=== PATIENT | female | born 1970 | race Caucasian/White ===

== ENCOUNTER → 2017-07-02 | Outpatient (CLI) | payer OTHER ==
--- NOTE | 2017-07-02 12:52 | US ---
EXAMINATION TYPE: US pelvis complete transvag DATE OF EXAM: 07/02/2017 COMPARISON: 11/13/2014 CLINICAL HISTORY: 38-year-old female assess R93.8 ENDOMETRIAL STRIPE. Patient states thickened endome trium on previous ultrasound performed at a different facility. Pelvic pain TECHNIQUE: Transvaginal (TV) and Transabdominal (TA) Date of LMP: Last normal LMP was in March, spotting last week FINDINGS: Uterus: Anteverted measuring 10.5 x 5.2 x 5.9 cm there are cervical nabothian cysts measuring up to 9 mm. Uterus appears enlarged with diffusely heterogeneous myometrium and suggestion of some myometr ial cysts. Endometrial Stripe: 1.8 cm, thickened. The borders of the endometrium are not well delineated. Right Ovary: 2.1 x 1.4 x 1.5 cm. Left Ovary: 4.2 x 2.2 x 3.1 cm only seen transabdominally with a 1.8 cm hypoechoic lesion that could represent a hemorrhagic follicle or corpus luteum. No evident adnexal abnormality or cul-de-sac free fluid. IMPRESSION: 1. Somewhat large, heterogeneous uterus with scattered myometrial cysts. Correlate for possible adeno myosis. Female pelvic MRI could better define the junctional anatomy. 2. Thickened (1.8 cm) and somewhat ill-defined endometrial stripe. Again, MRI could further evaluate.
== END | disposition home or self-care (01) ==
LOC: RADUSWWP 09:51
PROVIDERS: ATTEND Obstetrics & Gynecology
DX: R93.8 Abnormal findings on diagnostic imaging of other specified body structures (principal)
CPT/HCPCS: 76830; 76856

== ENCOUNTER 2017-07-03 07:03 | Day surgery (SDC) | payer OTHER ==
[2017-07-01 08:35] VITALS: BMI 32.7
[~2017-07-03 07:03] MED LIST: LIDOCAINE 1% 20 ML VIAL (10MG/ML) FOR IV START INTRADERMA PRN
[2017-07-03 07:14] VITALS: RESP 16; TEMP 96.9
[2017-07-03] MEDS: LACTATED RINGERS 1,000 ML IV SCH ×2 (07:25→07:33)
[2017-07-03] MEDS ORDERED: LIDOCAINE 1% INJ 10MG/ML (20 ML MDV) ONE (07:35)
[2017-07-03] MEDS ORDERED: PROPOFOL 10 MG/ML 20 ML VIAL IV ONE (07:35)
--- NOTE | 2017-07-03 07:59 | P.OP ---
Date of Procedure: 07/03/17 Preoperative Diagnosis: Screening. Personal history of colon polyps. Family history of colon cancer in her mother. Postoperative Diagnosis: Moderate diverticulosis. Mild internal hemorrhoids. Procedure(s) Performed: Colonoscopy. Anesthesia: MAC Surgeon: Hao Mcknight Estimated Blood Loss (ml): 0 Pathology: none sent Condition: stable Disposition: same day Indications for Procedure: Screening. Operative Findings: Moderate diverticulosis. Mild internal hemorrhoids. Description of Procedure: With the patient in the left lateral position rectal digital exam was normal there were no palpable masses. The video colonoscope was inserted transanally and advanced all the way to the cecum which was entered without visualized colon was somewhat tortuous. The mucosa were thoroughly examined. Findings moderate diverticulosis uncomplicated. Mild the internal hemorrhoids the which may explain the occasional streak of blood in the stool. Polyps neoplasms or any other mucosal abnormalities were found. The patient tolerated the procedure well without any evident complications. Recommendation. High-fiber diet the. May benefit from a fiber supplement daily. Conservative treatment for the hemorrhoids unless she gets more symptomatic. Advised to chew her food well. Recommend a follow-up colonoscopy in about the 5 years in view of family history and personal history of polyps.
[2017-07-03 08:19] VITALS: BP 138/86; PULSE 64
== END 2017-07-03 08:38 | disposition home or self-care (01) ==
LOC: ORWHC2ENDO 07:03
PROVIDERS: ATTEND Surgery
DX: K57.30 Diverticulosis of large intestine without perforation or abscess without bleeding (principal); K64.8 Other hemorrhoids; Z86.010 Personal history of colon polyps; Z80.0 Family history of malignant neoplasm of digestive organs; E03.9 Hypothyroidism, unspecified; E78.5 Hyperlipidemia, unspecified; K92.1 Melena; Z95.1 Presence of aortocoronary bypass graft; Z79.82 Long term (current) use of aspirin; Z79.899 Other long term (current) drug therapy
CPT/HCPCS: 45378; 81025

== ENCOUNTER 2018-04-17 06:57 | Emergency (ER) | payer OTHER ==
--- NOTE | 2018-04-17 08:00 | ED ---
General Adult HPI - General Chief complaint: Chest Pain Stated complaint: Lump on breast Time Seen by Provider: 04/17/18 07:40 Source: patient, RN notes reviewed Mode of arrival: ambulatory Limitations: no limitations - History of Present Illness Initial comments: Patient is a pleasant 47-year-old female presenting to the emergency department with concerns for lump on her right breast. Patient notices this morning however states there may have been some mild irritation there yesterday. Patient states it is more irritated or itching however when she pushes deep there is some discomfort. No redness. No fevers. No history of similar symptoms sleep. Patient has not noticed any swelling or mass previously. - Related Data Home Medications Medication Instructions Recorded Confirmed Aspirin 81 mg PO DAILY 11/13/14 07/01/17 Levothyroxine Sodium [Synthroid] 100 mcg PO DAILY 11/13/14 07/01/17 Albuterol Inhaler [Ventolin Hfa 1 - 2 puff INHALATION Q6HR PRN 07/01/17 07/01/17 Inhaler] L.acidoph,Paracasei, B.lactis 1 each PO DAILY 07/01/17 07/01/17 [Probiotic] [place]-3 Acid Ethyl Esters [Lovaza] 4 gm PO DAILY 07/01/17 07/01/17 Calcium Polycarbophil [Fibercon] 625 mg PO DAILY 04/17/18 04/17/18 Previous Rx's Medication Instructions Recorded Amoxicillin 500 mg PO Q8H #30 capsule 04/17/18 Allergies Allergy/AdvReac Type Severity Reaction Status Date / Time No Known Allergies Allergy Verified 04/17/18 07:05 Review of Systems ROS Statement: Those systems with pertinent positive or pertinent negative responses have been documented in the HPI. ROS Other: All systems not noted in ROS Statement are negative. Constitutional: Denies: fever Eyes: Denies: eye pain ENT: Denies: ear pain Respiratory: Denies: cough Cardiovascular: Denies: palpitations Endocrine: Denies: fatigue Gastrointestinal: Denies: abdominal pain Genitourinary: Denies: dysuria Musculoskeletal: Denies: back pain Skin: Denies: rash Neurological: Denies: weakness Past Medical History Past Medical History: Thyroid Disorder Additional Past Medical History / Comment(s): occasional blood in stool, abd. cramping, hx. colon polyps, had radiation tx. of thyroid for hyperthyroid History of Any Multi-Drug Resistant Organisms: None Reported Date of last positivie culture/infection: 2007 MDRO Source:: unknown source unknown organism Past Surgical History: Orthopedic Surgery Additional Past Surgical History / Comment(s): heart valve, 3 open heart atrial/ septal defect repairs, ankle, foot Past Anesthesia/Blood Transfusion Reactions: Postoperative Nausea & Vomiting ( PONV) Additional Past Anesthesia/Blood Transfusion Reaction / Comment(s): PONV once w/ endoscopy Past Psychological History: No Psychological Hx Reported Smoking Status: Never smoker Past Alcohol Use History: Rare Past Drug Use History: None Reported - Past Family History Mother Family Medical History: Cancer General Exam Limitations: no limitations General appearance: alert, in no apparent distress, other (RN Diane is present during exam. Right upperBreasts with approximately grape size area of increased density. There is mild associated tenderness. It is slightly firm. It is mobile.) Eye exam: Present: normal appearance Respiratory exam: Present: normal lung sounds bilaterally Cardiovascular Exam: Present: regular rate, normal rhythm, systolic murmur GI/Abdominal exam: Present: soft. Absent: tenderness Extremities exam: Present: normal inspection Neurological exam: Present: alert Psychiatric exam: Present: normal affect, normal mood Skin exam: Present: normal color. Absent: rash Course Vital Signs 04/17/18 07:02 Temperature 98.4 F Pulse Rate 78 Respiratory 16 Rate Blood Pressure 144/90 O2 Sat by Pulse 98 Oximetry Medical Decision Making - Medical Decision Making Patient reevaluated and updated on results and need for follow-up. - Radiology Data Radiology results: image reviewed (Ultrasound of the right breast shows 2 hypoechoic areas that had the appearance of simple cyst. Early infection is not excluded.) Disposition Clinical Impression: Breast cyst Disposition: HOME SELF-CARE Condition: Stable Instructions: Breast Mass (ED), Cyst (ED) Additional Instructions: Please follow-up with surgeon and primary care physician in the next few days for recheck. You will need further evaluation on this including mammogram and possible repeat ultrasound or other in the future. Return for redness, fever, increased pain, increased swelling, worsening symptoms or other concerns. Prescriptions: Amoxicillin 500 mg PO Q8H #30 capsule Is patient prescribed a controlled substance at d/c from ED?: No Referrals: Lakshmi De La Cruz MD [Primary Care Provider] - 1-2 days Sandra Cowart MD [STAFF PHYSICIAN] - 1-2 days Time of Disposition: 09:02
--- NOTE | 2018-04-17 08:43 | USB ---
EXAMINATION TYPE: US breast limited RT DATE OF EXAM: 04/17/2018 COMPARISON: NONE CLINICAL HISTORY: evaluate mass. RUO & HUMZA quads of breast evaluated for lump 2 hypoechoic areas noted without internal flow. Largest hypoechoic area measuring 3.8 x 3.5 x 3.4 cm Rt breast 1200 ~5 cm from nipple. 1000 ~4 cm from nipple hypoechoic area measuring 1.6 x 01.0 x 1.5 cm. Nipple and tail of padilla appear wnl. IMPRESSION: 2 HYPOECHOIC AREAS WITHIN THE BREAST HAVE THE APPEARANCE OF SIMPLE CYSTS. EARLY INFECTION IS NOT EXCL UDED. BI-RADS 2
[2018-04-17 09:20] VITALS: BP 166/88; PULSE 74; RESP 18; TEMP 98.6
== END 2018-04-17 09:18 | disposition home or self-care (01) ==
LOC: EC 06:57
DX: N60.01 Solitary cyst of right breast (principal); E05.90 Thyrotoxicosis, unspecified without thyrotoxic crisis or storm; Z79.82 Long term (current) use of aspirin; Z79.899 Other long term (current) drug therapy
CPT/HCPCS: 99285

== ENCOUNTER → 2018-04-29 | Outpatient (CLI) | payer OTHER ==
[2018-04-29 15:54] VITALS: BP 140/83; PULSE 76; TEMP 98; BMI 32.9
--- NOTE | 2018-04-29 16:49 | P.GSHP ---
History of Present Illness H&P Date: 04/29/18 (Te ) Chief Complaint: lump in her left breast The patient is a 47 year old white female who noted a nodule in her left breast 04-17-18. She did a breast self-examination at that time and was noted to have a nodule in her right breast. The reason for the examination was secondary to a feeling of pain in her breast. She went to the ER and an ultrasound was done which a 3.8 cm lesion approximately 5 cm from the nipple and an apparent second lesion approximately 4 cm from the nipple that was 1.6 cm in size. Impression was too hypoechoic areas within the breast having the appearance of simple cyst , early infection was not excluded. The patient does note some intermittent feeling of warmness and chills. she has never felt anything in her breast in the past. No nipple or changes. She did not normally have cyclical changes in her breast, and does not at this time. She drinks coffee and at least one cola/day. She does not smoke and is not exposed to nicotine. She eats chocolate weekly. Past surgical history: 1. Atrial septal defect repair at 1. Septal defect repair at 3 years of age 3. 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 Toe surgery 5. Ankle surgery 6. D&C Past Medical History: 1. Hyperthyroidism treated with radiation therapy 2. asthma 3. Patient had colonoscopy within the year showed only diverticulosis, no cancer family history: 1. mother: colon cancer 2. paternal grandfather: colon cancer 3. paternal uncle: colon cancer menarche: 8 pregnancys: 2, 2 children, breast fed: none, first at 16 krystyna-menopausal: last menstral period in December, 5 months ago hormones: none BCP: none Social history: Smoking: Negative Alcohol: Negative Drugs: Negative - Constitutional Constitutional: Denies chills, Denies fever - EENT Eyes: bilateral blurred vision (wears glasses), denies pain Ears: deny: decreased hearing, tinnitus Ears, nose, mouth and throat: Reports headache, Denies sore throat - Breasts Breasts: bilateral: as per HPI - Cardiovascular Cardiovascular: Reports shortness of breath, Denies chest pain - Respiratory Comment: Asthma Respiratory: Reports cough - Gastrointestinal Gastrointestinal: Denies abdominal pain, Denies diarrhea, Denies nausea, Denies vomiting - Genitourinary (Female) Comment: uninary tract infection in the past Genitourinary: Denies dysuria, Denies hematuria - Menstruation Comment: per-menopausal - Musculoskeletal Comment: feet planters fasciates - Integumentary Integumentary: Denies pruritus, Denies rash - Neurological Neurological: Reports weakness, Denies numbness - Psychiatric Psychiatric: Reports anxiety, Denies depression - Endocrine Endocrine: Denies fatigue, Denies weight change - Hematologic/Lymphatic Comment: Baby aspirin - Allergic/Immunologic Allergic/Immunologic: Reports seasonal allergies Past Medical History Past Medical History: Asthma, Thyroid Disorder Additional Past Medical History / Comment(s): occasional blood in stool, abd. cramping, hx. colon polyps, had radiation tx. of thyroid for hyperthyroid History of Any Multi-Drug Resistant Organisms: None Reported Date of last positivie culture/infection: 2007 MDRO Source:: unknown source unknown organism Past Surgical History: Orthopedic Surgery Additional Past Surgical History / Comment(s): heart valve, 3 open heart atrial/ septal defect repairs, left ankle, left foot large toe Past Anesthesia/Blood Transfusion Reactions: Postoperative Nausea & Vomiting ( PONV) Additional Past Anesthesia/Blood Transfusion Reaction / Comment(s): PONV once w/ endoscopy Past Psychological History: No Psychological Hx Reported Smoking Status: Never smoker Past Alcohol Use History: Rare Past Drug Use History: None Reported - Past Family History Mother Family Medical History: Cancer Additional Family Medical History / Comment(s): colon 2017 Medications and Allergies Home Medications Medication Instructions Recorded Confirmed Type Aspirin 81 mg PO QAM 11/13/14 04/29/18 History Levothyroxine Sodium [Synthroid] 100 mcg PO QAM 11/13/14 04/29/18 History Albuterol Inhaler [Ventolin Hfa 1 - 2 puff INHALATION Q6HR PRN 07/01/17 History Inhaler] L.acidoph,Paracasei, B.lactis 1 each PO QAM 07/01/17 04/29/18 History [Probiotic] [place]-3 Acid Ethyl Esters [Lovaza] 4 gm PO BID 07/01/17 04/29/18 History Calcium Polycarbophil [Fibercon] 625 mg PO QAM 04/17/18 04/29/18 History Allergies Allergy/AdvReac Type Severity Reaction Status Date / Time No Known Allergies Allergy Verified 04/29/18 15:49 Surgical - Exam Vital Signs Temp Pulse BP Pulse Ox 98.0 F 76 140/83 98 04/29/18 15:52 04/29/18 15:52 04/29/18 15:52 04/29/18 15:52 - General obese - Eyes normal ocular movement - ENT no hearing loss, no congestion - Neck no masses, trachea midline - Respiratory scattered rhonci at bases normal respiratory effort, clear to auscultation - Cardiovascular Well-healed thoracic scar from prior cardiac surgery Rhythm: regular Heart Sounds: normal: S1, S2 - Abdomen Abdomen: soft, non tender, no guarding, no rigid, no rebound - Integumentary well healed scars from prior surgery - Neurologic no disoriented, no combative - Musculoskeletal normal gait, normal posture - Psychiatric oriented to time, oriented to person, oriented to place, speech is normal, memory intact Breast examination: Right breast: At the 12 o'clock position is an approximately 3 x 4 cm smooth- walled nodule multi-positional exam, No other dominant masses or nodules of concern Right axilla: No adenopathy of concern Left breast: Multiple positional exam no dominant masses or nodules of concern Left axilla: No adenopathy of concern Results Ultrasound report reviewed Assessment and Plan Assessment: Impression/plan: 1. Palpable mass corresponding to ultrasound abnormality in 12 o'clock position of the right breast probable simple cyst 2. Prior history of atrial septal defect repair 3. Prior history of pulmonary valve replacement 4. asthma 5. perimenopausal 6. Plantars fasciitis Plan: 1. Aspiration cystic lesion right breast/would recommend bilateral mammogram following this 2. Medical management of medical problems Risk and benefits of the procedure were discussed with the patient and she is going to undergo attempted aspiration of the area of concern in the right breast. Cc: Dr. De La Cruz
--- NOTE | 2018-04-29 16:52 | P.PCN ---
Date of Procedure: 04/29/18 Preoperative Diagnosis: Probable cystic lesion right breast at 12:00 Postoperative Diagnosis: same Procedure(s) Performed: Aspiration cystic lesion 12:00 right breast Anesthesia: none Estimated Blood Loss (ml): 0 Pathology: other (cystic fluid) Disposition: same day Indications for Procedure: Enlarging cystic mass right breast 12:00, painful Description of Procedure: Patient is a 47-year-old white female who noted a nodule in the right breast at the 12 o'clock position. Ultrasound was performed which showed this appeared to be consistent with a simple cyst. After discussion with the patient we she has opted for an attempt at aspiration. The area was prepped using alcohol. 22 -gauge needle on a 20 mL syringe was used to aspirate the area. Approximately 26 mL of green colored fluid was removed. This was sent for culture as well as cytology. There was complete resolution of the cyst. The patient tolerated the procedure in stable condition. She will have a bilateral mammogram and follow-up next week. cc: Dorothy
== END | disposition home or self-care (01) ==
LOC: WWCWWP 14:59
PROVIDERS: ATTEND Surgery
DX: Z53.9 Procedure and treatment not carried out, unspecified reason (principal)

== ENCOUNTER → 2018-05-13 | Outpatient (CLI) | payer OTHER ==
--- NOTE | 2018-05-15 08:25 | MM ---
Reason for exam: additional evaluation requested from prior study. Physical Findings: Nurse Summary: 1 cm lesion at 11 o'clock right breast, and 0.5 cm lesion at 1 o'clock left breast. MG 3D Diag Mammo W/Cad [place] Bilateral CC and MLO view(s) were taken. The breast tissue is heterogeneously dense. This may lower the sensitivity of mammography. Bilateral new nodularities, 9 mm left at BB. These results were verbally communicated with the patient and result sheet given to the patient on 05/13/18 ASSESSMENT: Incomplete: need additional imaging evaluation, BI-RAD 0 RECOMMENDATION: Ultrasound of both breasts. Ultrasound palpables and concerned 9 mm nodularity left breast.
--- NOTE | 2018-05-15 08:34 | USB ---
Reason for exam: additional evaluation requested from abnormal screening. US Breast Limited BILAT Bilateral limited breast ultrasound including focal area of concern, retroareolar and axilla demonstrates in the right breast a 0.8 x 0.7 x 0.9 well circumscribed round cystic lesion at 10 o'clock, a 2.0 x 1.8 x 2.4 well circumscribed round cystic lesion at 1 o'clock. In the left breast ductal ectastia was seen. The cystic lesion are simple cysts. These results were verbally communicated with the patient and result sheet given to the patient on 05/13/18. ASSESSMENT: Probably benign, BI-RAD 3 RECOMMENDATION: Follow-up diagnostic mammogram of the left breast in 6 months.
== END | disposition home or self-care (01) ==
LOC: RADMAMWWP 07:43
PROVIDERS: ATTEND Surgery
DX: N63.20 Unspecified lump in the left breast, unspecified quadrant (principal); N63.10 Unspecified lump in the right breast, unspecified quadrant
CPT/HCPCS: 77062; 77066

== ENCOUNTER → 2018-05-13 | Outpatient (CLI) | payer OTHER ==
[2018-05-13 09:22] VITALS: BMI 32.7
--- NOTE | 2018-05-13 09:52 | P.PN ---
Progress Note - Text Progress Note Date: 05/13/18 The patient is a 47-year-old white female who was seen on 04/29/2018 with a palpable abnormality in her right breast. She had an aspiration of a cystic lesion which was minimally cellular and nondiagnostic. Approximately 25 mL of brown-red fluid were obtained. Cultures were negative. The patient states that she has recurrence of the cystic area in the right breast and feels that this may be a second lesion. The patient had a bilateral mammogram and ultrasound of the breast performed today which revealed fibrocystic changes and precautionary repeat bilateral mammogram and ultrasound in 6 months were recommended. Physical examination: Physical examination is limited to the breast Right breast: Multiple positional examination a repeat nodule is demonstrated at the 12 o'clock position in the right breast this appears to be smooth-walled most likely consistent with a cyst Right axilla: No adenopathy of concern Left breast: Multiple positional exam no dominant masses or nodules of concern Left axilla: No adenopathy of concern Impression: 1. Fibrocystic breast changes Plan: 1. Repeat examination in 3 weeks to assure that cysts have not recurred patient will call sooner if cyst recur sooner 2. Repeat bilateral mammogram in 6 months time Cc: Dr. De La Cruz
== END | disposition home or self-care (01) ==
LOC: WWCWWP 07:45
PROVIDERS: ATTEND Surgery
DX: Z53.9 Procedure and treatment not carried out, unspecified reason (principal)

== ENCOUNTER 2019-05-18 21:58 | Emergency (ER) | payer OTHER ==
[2019-05-18 22:35] VITALS: TEMP 99.3
[2019-05-18] MEDS ORDERED: ALBUTEROL NEBULIZED (CONC) 5 MG, SODIUM CHLORIDE 0.9% NEBULIZ 3 ML INHALATION STA ×2 (22:51)
[2019-05-18] MEDS ORDERED: IPRATROPIUM 0.5 MG/2.5 ML NEBU INHALATION STA (22:51)
[2019-05-18 23:42] LABS: Appearance,Urine Clear (Clear); Basophils % (A) 0 %; Bilirubin,Urine Negative (Negative); Blood,Urine Negative (Negative); Color,Urine Light Yellow; Eosinophils # (A) 0.1 k/uL (0-0.7); Eosinophils % (A) 1 %; Glucose,Urine (UA) Negative (Negative); HCT 39.4 % (34.0-46.0); HGB 13.3 gm/dL (11.4-16.0); Ketones,Urine Negative (Negative); Leukocyte Esterase,Urine Negative (Negative); Lymphocytes # (A) 1.1 k/uL (1.0-4.8); Lymphocytes % (A) 6 %; MCH 26.8 pg (25.0-35.0); MCHC 33.8 g/dL (31.0-37.0); MCV 79.4 fL (80.0-100.0); Mean Platelet Volume 6.5; Monocytes # (A) 1.2 k/uL (0-1.0); Monocytes % (A) 6 %; Neutrophils # (A) 16.7 k/uL (1.3-7.7); Neutrophils % (A) 86 %; Nitrite,Urine Negative (Negative); PH, Urine 6.5 (5.0-8.0); Platelet Count 345 k/uL (150-450); Protein,Urine Negative (Negative); RBC 4.96 m/uL (3.80-5.40); RDW 15.7 % (11.5-15.5); Specific Gravity,Urine 1.007 (1.001-1.035); Urobilinogen,Urine <2.0 mg/dL (<2.0); WBC 19.3 k/uL (3.8-10.6)
--- NOTE | 2019-05-18 23:44 | XR ---
EXAM: XR Chest, 2 Views CLINICAL HISTORY: ITS.REASON XR Reason: Fever TECHNIQUE: Frontal and lateral views of the chest. COMPARISON: No relevant prior studies available. FINDINGS: Lungs: Ill-defined airspace disease at left lower lobe. No other consolidation. Pleural space: Unremarkable. No pneumothorax. Heart: Intact sternotomy wires. Cardiomegaly suggested. No vascular congestion. Mediastinum: Unremarkable. Bones/joints: Unremarkable. IMPRESSION: Left lower lobe pneumonia suspected.. Suggest follow-up in 8 weeks to document stability.
[2019-05-18] MEDS ORDERED: AZITHROMYCIN 500 MG in SODIUM CHLORIDE 0.9% 250 ML IVPB STA (23:46)
[2019-05-18 23:51] LABS: ALT 27 U/L (9-52); AST 31 U/L (14-36); African American GFR (CKD) >90 (>60 ml/min/1.73 sqM); Albumin 4.4 g/dL (3.5-5.0); Alkaline Phosphatase 70 U/L (38-126); Anion Gap 11 mmol/L; Blood Urea Nitrogen 11 mg/dL (7-17); Calcium 9.2 mg/dL (8.4-10.2); Carbon Dioxide 23 mmol/L (22-30); Chloride 105 mmol/L (98-107); Glucose 138 mg/dL (74-99); Potassium 4.2 mmol/L (3.5-5.1); Sodium 139 mmol/L (137-145); Total Bilirubin 0.8 mg/dL (0.2-1.3); Total Protein 7.7 g/dL (6.3-8.2)
[2019-05-18 23:52] LABS: INR 0.9 (<1.2); Partial Thromboplastin Time 25.9 sec (22.0-30.0); Prothrombin Time 9.7 sec (9.0-12.0)
[2019-05-19 00:28] VITALS: BP 125/73; RESP 18
[2019-05-19] MEDS ORDERED: guaiFENesin-DM 600/30MG 1 EACH TAB.ER.12H PO STA (00:38)
[2019-05-19] MEDS ORDERED: cefTRIAXone IN SWFI 1,000 MG/10 ML SYRINGE IVP STA (00:40)
--- NOTE | 2019-05-19 00:43 | ED ---
General Adult HPI - General Chief complaint: Chest Pain Stated complaint: Chest Pressure, SOB Time Seen by Provider: 05/18/19 22:23 Source: patient Mode of arrival: ambulatory Limitations: no limitations - History of Present Illness Initial comments: 48-year-old female patient presents to the emergency department today for evaluation of cough, chest pain, and shortness of breath that started late last night. Patient states she is coughing up "great" colored sputum. States that the cough has been persistent throughout the day. States that she has been feverish and chilled. States she did check her temperature at home with 102F. Patient states she does have a history of asthma. Denies any history of smoking. Denies any recent travel or use of vape pens. She states her throat is scratchy, denies any nasal congestion or drainage. Patient denies any recent rash, abdominal pain, nausea, vomiting, diarrhea, constipation, back pain, numbness, tingling, dizziness, weakness, hematuria, dysuria, urinary urgency, urinary frequency, headache, visual changes, or any other complaints. - Related Data Home Medications Medication Instructions Recorded Confirmed Aspirin 81 mg PO QAM 11/13/14 05/13/18 Levothyroxine Sodium [Synthroid] 100 mcg PO QAM 11/13/14 05/13/18 Albuterol Inhaler [Ventolin Hfa 1 - 2 puff INHALATION Q6HR PRN 07/01/17 05/13/18 Inhaler] L.acidoph,Paracasei, B.lactis 1 each PO QAM 07/01/17 05/13/18 [Probiotic] Guthrie-3 Acid Ethyl Esters [Lovaza] 4 gm PO BID 07/01/17 05/13/18 Calcium Polycarbophil [Fibercon] 625 mg PO QAM 04/17/18 05/13/18 Previous Rx's Medication Instructions Recorded Azithromycin [Zithromax Z-pack] 0 mg PO DIRECTED #6 tab 05/19/19 guaiFENesin-DM 600/30MG [Mucinex 1 each PO Q12HR #10 tab.er.12h 05/19/19 Dm] Allergies Allergy/AdvReac Type Severity Reaction Status Date / Time No Known Allergies Allergy Verified 05/18/19 22:18 Review of Systems ROS Statement: Those systems with pertinent positive or pertinent negative responses have been documented in the HPI. ROS Other: All systems not noted in ROS Statement are negative. Past Medical History Past Medical History: Asthma, Thyroid Disorder Additional Past Medical History / Comment(s): occasional blood in stool, abd. cramping, hx. colon polyps, had radiation tx. of thyroid for hyperthyroid History of Any Multi-Drug Resistant Organisms: None Reported Date of last positivie culture/infection: 2007 MDRO Source:: unknown source unknown organism Past Surgical History: Orthopedic Surgery Additional Past Surgical History / Comment(s): heart valve, 3 open heart atrial/septal defect repairs, left ankle, left foot large toe Past Anesthesia/Blood Transfusion Reactions: Postoperative Nausea & Vomiting (PONV) Additional Past Anesthesia/Blood Transfusion Reaction / Comment(s): PONV once w/endoscopy Past Psychological History: No Psychological Hx Reported Smoking Status: Never smoker Past Alcohol Use History: Rare Past Drug Use History: None Reported - Past Family History Mother Family Medical History: Cancer Additional Family Medical History / Comment(s): colon 2017 General Exam Limitations: no limitations General appearance: alert, in no apparent distress, other (Physical well- developed, well-nourished adult female patient in no acute distress. Vital signs upon presentation are temperature 99.7F, pulse 110, respirations 18, blood pressure 140/70, pulse ox 93% on room air.) Eye exam: Present: normal appearance, PERRL, EOMI. Absent: scleral icterus, conjunctival injection, periorbital swelling ENT exam: Present: normal exam, normal oropharynx, mucous membranes moist, TM's normal bilaterally Respiratory exam: Present: wheezes (Course wheezing right lower lobe.). Absent: normal lung sounds bilaterally, respiratory distress, rales, rhonchi, stridor Cardiovascular Exam: Present: regular rate, normal rhythm, normal heart sounds. Absent: systolic murmur, diastolic murmur, rubs, gallop, clicks GI/Abdominal exam: Present: soft, normal bowel sounds. Absent: distended, tenderness, guarding, rebound, rigid Neurological exam: Present: alert, oriented X3, CN II-XII intact Psychiatric exam: Present: normal affect, normal mood Skin exam: Present: warm, dry, intact, normal color. Absent: rash Course Vital Signs 05/18/19 05/18/19 05/18/19 22:15 22:31 22:33 Temperature 99.7 F H 99.3 F Pulse Rate 110 H 107 H Pulse Rate [ 106 H [facility] ] Respiratory 18 18 Rate Blood Pressure 148/7 139/75 O2 Sat by Pulse 93 L 92 L Oximetry 05/18/19 05/18/19 05/18/19 22:35 23:20 23:28 Temperature Pulse Rate 99 105 H Pulse Rate [ [facility] ] Respiratory 20 Rate Blood Pressure O2 Sat by Pulse Oximetry 05/19/19 05/19/19 00:26 01:19 Temperature Pulse Rate 102 H 99 Pulse Rate [ [facility] ] Respiratory 18 Rate Blood Pressure 125/73 O2 Sat by Pulse 96 96 Oximetry EKG Findings - EKG Comments: EKG Findings:: EKG obtained at 2224 shows sinus tachycardia with a ventricular rate of 110, IN interval 150, QRS duration 116, QT 328, QTC 443. No evidence of ST elevation or depression. Medical Decision Making - Medical Decision Making 56-year-old female patient presents to the emergency department today for evaluation of cough, chest discomfort, and shortness of breath. Physical examination revealed coarse lung sounds in the lower lobes. Patient has hypoxic at 93% on room air upon arrival. She was febrile. Chest x-ray showed left lower lobe pneumonia. Labs reviewed and did reveal elevated white blood cell count at 19. Lactic acid was normal. Blood pressure is stable. Did discuss findings and results with the patient. We will treat for pneumonia with azithromycin. She would like to attempt outpatient treatment. She is instructe d to alternate Tylenol Motrin for fever control. Increase fluids. Follow-up with her primary care physician for recheck in 1-2 days. Return parameters were discussed in detail. She verbalizes understanding and agrees with this plan. - Lab Data Result diagrams: 05/18/19 23:25 05/18/19 23:25 Lab Results 05/18/19 05/18/19 05/18/19 Range/Units 23:25 23:25 23:25 WBC 19.3 H (3.8-10.6) k/uL RBC 4.96 (3.80-5.40) m/uL Hgb 13.3 (11.4-16.0) gm/dL Hct 39.4 (34.0-46.0) % MCV 79.4 L (80.0-100.0) fL MCH 26.8 (25.0-35.0) pg MCHC 33.8 (31.0-37.0) g/dL RDW 15.7 H (11.5-15.5) % Plt Count 345 (150-450) k/uL Neutrophils % 86 % Lymphocytes % 6 % Monocytes % 6 % Eosinophils % 1 % Basophils % 0 % Neutrophils # 16.7 H (1.3-7.7) k/uL Lymphocytes # 1.1 (1.0-4.8) k/uL Monocytes # 1.2 H (0-1.0) k/uL Eosinophils # 0.1 (0-0.7) k/uL Basophils # 0.0 (0-0.2) k/uL PT (9.0-12.0) sec INR (<1.2) APTT (22.0-30.0) sec Sodium 139 (137-145) mmol/L Potassium 4.2 (3.5-5.1) mmol/L Chloride 105 (98-107) mmol/L Carbon Dioxide 23 (22-30) mmol/L Anion Gap 11 mmol/L BUN 11 (7-17) mg/dL Creatinine 0.67 (0.52-1.04) mg/dL Est GFR (CKD-EPI)AfAm >90 (>60 ml/min/1.73 sqM) Est GFR (CKD-EPI)NonAf >90 (>60 ml/min/1.73 sqM) Glucose 138 H (74-99) mg/dL Plasma Lactic Acid Car 2.0 (0.7-2.0) mmol/L Calcium 9.2 (8.4-10.2) mg/dL Total Bilirubin 0.8 (0.2-1.3) mg/dL AST 31 (14-36) U/L ALT 27 (9-52) U/L Alkaline Phosphatase 70 (38-126) U/L Total Protein 7.7 (6.3-8.2) g/dL Albumin 4.4 (3.5-5.0) g/dL Urine Color Urine Appearance (Clear) Urine pH (5.0-8.0) Ur Specific [place] (1.001-1.035) Urine Protein (Negative) Urine Glucose (UA) (Negative) Urine Ketones (Negative) Urine Blood (Negative) Urine Nitrite (Negative) Urine Bilirubin (Negative) Urine Urobilinogen (<2.0) mg/dL Ur Leukocyte Esterase (Negative) 05/18/19 05/18/19 Range/Units 23:25 23:25 WBC (3.8-10.6) k/uL RBC (3.80-5.40) m/uL Hgb (11.4-16.0) gm/dL Hct (34.0-46.0) % MCV (80.0-100.0) fL MCH (25.0-35.0) pg MCHC (31.0-37.0) g/dL RDW (11.5-15.5) % Plt Count (150-450) k/uL Neutrophils % % Lymphocytes % % Monocytes % % Eosinophils % % Basophils % % Neutrophils # (1.3-7.7) k/uL Lymphocytes # (1.0-4.8) k/uL Monocytes # (0-1.0) k/uL Eosinophils # (0-0.7) k/uL Basophils # (0-0.2) k/uL PT 9.7 (9.0-12.0) sec INR 0.9 (<1.2) APTT 25.9 (22.0-30.0) sec Sodium (137-145) mmol/L Potassium (3.5-5.1) mmol/L Chloride (98-107) mmol/L Carbon Dioxide (22-30) mmol/L Anion Gap mmol/L BUN (7-17) mg/dL Creatinine (0.52-1.04) mg/dL Est GFR (CKD-EPI)AfAm (>60 ml/min/1.73 sqM) Est GFR (CKD-EPI)NonAf (>60 ml/min/1.73 sqM) Glucose (74-99) mg/dL Plasma Lactic Acid Car (0.7-2.0) mmol/L Calcium (8.4-10.2) mg/dL Total Bilirubin (0.2-1.3) mg/dL AST (14-36) U/L ALT (9-52) U/L Alkaline Phosphatase (38-126) U/L Total Protein (6.3-8.2) g/dL Albumin (3.5-5.0) g/dL Urine Color Light Yellow Urine Appearance Clear (Clear) Urine pH 6.5 (5.0-8.0) Ur Specific [place] 1.007 (1.001-1.035) Urine Protein Negative (Negative) Urine Glucose (UA) Negative (Negative) Urine Ketones Negative (Negative) Urine Blood Negative (Negative) Urine Nitrite Negative (Negative) Urine Bilirubin Negative (Negative) Urine Urobilinogen <2.0 (<2.0) mg/dL Ur Leukocyte Esterase Negative (Negative) - Radiology Data Radiology results: report reviewed, image reviewed Two-view x-ray of the chest is obtained. Report is reviewed in its entirety. Impression by Dr. Pierson shows left lower lobe pneumonia suspected. Disposition Clinical Impression: Left lower lobe pneumonia Disposition: HOME SELF-CARE Condition: Good Instructions (If sedation given, give patient instructions): Pneumonia (ED) Additional Instructions: Complete antibiotic prescription in full. Take medications as directed. Increase fluids, rest, take Tylenol Motrin for fever control. Return to the emergency department immediately for any new, worsening, or concerning symptoms. Prescriptions: guaiFENesin-DM 600/30MG [Mucinex Dm] 1 each PO Q12HR #10 tab.er.12h Azithromycin [Zithromax Z-pack] 0 mg PO DIRECTED #6 tab Is patient prescribed a controlled substance at d/c from ED?: No Referrals: Lakshmi De La Cruz MD [Primary Care Provider] - 1-2 days Time of Disposition: 00:43
[2019-05-19 01:21] VITALS: PULSE 99
== END 2019-05-19 01:22 | disposition home or self-care (01) ==
LOC: EC 21:58
DX: J18.1 Lobar pneumonia, unspecified organism (principal); J45.909 Unspecified asthma, uncomplicated; E05.90 Thyrotoxicosis, unspecified without thyrotoxic crisis or storm; Z79.890 Hormone replacement therapy; Z79.82 Long term (current) use of aspirin
CPT/HCPCS: 36415 ×2; 94640; 93005; 80053; 83605; 85025; 85610; 85730; 81003; 87040; 87086; 71046; 99285; 96374; J0696

== ENCOUNTER → 2019-06-09 | Outpatient (CLI) | payer OTHER ==
--- NOTE | 2019-06-09 11:57 | XR ---
EXAMINATION TYPE: XR knee limited RT DATE OF EXAM: 06/09/2019 COMPARISON: NONE HISTORY: Pain TECHNIQUE: Two views are submitted. FINDINGS: Joint spaces are preserved. Osseous structures are intact. No acute fracture seen. Diffuse osteope charles noted. IMPRESSION: 1. No acute fracture or dislocation.
== END | disposition home or self-care (01) ==
LOC: RADXRYALE 11:35
PROVIDERS: ATTEND Internal Medicine
DX: M25.561 Pain in right knee (principal)

== ENCOUNTER → 2021-02-08 | Outpatient (CLI) | payer OTHER ==
--- NOTE | 2021-03-01 08:58 | MM ---
Reason for exam: screening (asymptomatic). Last mammogram was performed 1 year and 11 months ago. History: Patient is postmenopausal. Physical Findings: A clinical breast exam by your physician is recommended on an annual basis and results should be correlated with mammographic findings. MG Screening Mammo w CAD Bilateral CC and MLO view(s) were taken. Prior study comparison: March 08, 2019, mammogram. May 13, 2018, bilateral MG 3d diag mammo w/cad [place]. March 08, 2014, mammogram. October 13, 2011, mammogram. The breast tissue is heterogeneously dense. This may lower the sensitivity of mammography. There is no discrete abnormality. No significant changes when compared with prior studies. ASSESSMENT: Negative, BI-RAD 1 RECOMMENDATION: Routine screening mammogram of both breasts in 1 year.
== END | disposition home or self-care (01) ==
LOC: RADMAMWWP 06:57
PROVIDERS: ATTEND Family Medicine
DX: Z12.31 Encounter for screening mammogram for malignant neoplasm of breast (principal); Z78.0 Asymptomatic menopausal state
CPT/HCPCS: 77067

== ENCOUNTER → 2022-03-10 | Outpatient (CLI) | payer OTHER ==
--- NOTE | 2022-03-12 08:00 | MM ---
Reason for Exam: Screening (asymptomatic). Last mammogram was performed 1 year(s) and 1 month(s) ago. Patient History: Menarche at age 8. First Full-Term at age 16. Postmenopausal. Risk Values: Mayda 5 year model risk: 0.9%. NCI Lifetime model risk: 6.8%. Prior Study Comparison: 05/13/2018 Bilateral Diagnostic Mammogram, [facility]. 03/08/2019 Screening Mammogram, Unknown. 02/08/2021 Bilateral Screening Mammogram, [facility]. Tissue Density: The breast tissue is heterogeneously dense. This may lower the sensitivity of mammography. Findings: Analyzed By CAD. There is no suspicious group of microcalcifications or new suspicious mass in either breast. Overall Assessment: Negative, BI-RAD 1 Management: Screening Mammogram of both breasts in 1 year. A clinical breast exam by your physician is recommended on an annual basis and results should be correlated with mammographic findings. Electronically signed and approved by: Nik Horta M.D. Radiologis
== END | disposition home or self-care (01) ==
LOC: RADMAMWWP 07:05
PROVIDERS: ATTEND Family Medicine
DX: Z12.31 Encounter for screening mammogram for malignant neoplasm of breast (principal)
CPT/HCPCS: 77063; 77067

== ENCOUNTER → 2023-07-08 | Outpatient (CLI) | payer OTHER ==
--- NOTE | 2023-07-08 09:23 | CT ---
EXAMINATION TYPE: CT sinus wo con CT DLP: 593.60 mGycm, Automated exposure control for dose reduction was used. DATE OF EXAM: 07/08/2023 6:51 AM COMPARISON: None. CLINICAL INDICATION:Female, 52 years old with history of L32.9 CHRONIC SINUSITIS; , Chronic sinusitis TECHNIQUE: Multiple thin axial images were obtained through the paranasal sinuses without the use of IV contrast. Additional coronal and sagittal reformatted images were submitted for evaluation. Contrast used: none Oral contrast used: none FINDINGS: Frontal sinuses: Normally developed and aerated. Frontal Recess: Clear Maxillary Sinuses: Normally developed and aerated. Maxillary Infundibula(OMC): Clear, No John cells identified. Ethmoid sinuses: Normally developed and aerated. Ethmoidal notch: Protected and abutting the lateral lamina. Sphenoid sinuses: Normally developed and aerated. There is sellar sphenoid sinus pneumatization witho ut evidence of dehiscence. No dehiscence of carotid canal. No evidence of optic nerve dehiscence wit hin the sphenoid sinus. No evidence of Onodi cells. Sphenoethmoidal recesses: Clear. Nasal septum: Within normal limits.. Nasal Turbinates: Within normal limits. Mastoid air cells & middle ears: The air cells are clear. The middle ears are grossly unremarkable. Modified Soft tissues & Brain: Partially seen without gross abnormality. Globes are intact. Other: Cribriform plate demonstrates symmetric Keros classification type 1 cribriform plate. No evidence of bony dehiscence of skull base. Lamina papyracea is intact without evidence of remote orbital fracture or orbital prolapse into the e thmoid sinus. Pneumatization of the she juliette. IMPRESSION: 1. No significant mucosal sinus disease. 2. The ostiomeatal units, frontonasal and sphenoethmoidal recesses are clear.
== END | disposition home or self-care (01) ==
LOC: RADCTMAIN 06:28
PROVIDERS: ATTEND Otolaryngology
DX: J32.0 Chronic maxillary sinusitis (principal)
CPT/HCPCS: 70486

== ENCOUNTER → 2024-01-13 | Outpatient (CLI) | payer OTHER ==
--- NOTE | 2024-01-14 13:37 | BD ---
EXAMINATION TYPE: Axial Bone Density DATE OF EXAM: 01/13/2024 CLINICAL HISTORY: 53 years old Female. ICD-10 CODE: Z78.0 MENOPUASAL STATE Height: 61.5 in Weight: 169 lbs FRAX RISK QUESTIONS: History of Fracture in Adulthood: rt ankle fx age 36 Secondary Osteoporosis: Rheumatoid Arthritis: yes MEDICATIONS: Thyroid Medications: yes Which medication: Synthroid How Long: since 1992 EXAM MEASUREMENTS: Bone mineral densitometry was performed using the Daily Aisle System. Bone mineral density as measured about the Lumbar spine is: ----- L1-L4(G/cm2): 0.975 T Score Values are as follows: ----- L1: -2.2 ----- L2: -2.2 ----- L3: -1.1 ----- L4: -1.6 ----- L1-L4: -1.7 Z Score Values are as follows: ----- L1: -1.8 ----- L2: -1.7 ----- L3: -0.7 ----- L4: -1.2 ----- L1-L4: -1.3 Bone mineral density baseline Bone mineral density about the R hip (g/cm2): 1.033 Bone mineral density about the L hip (g/cm2): 0.965 T Score values are as follows: -----R Neck: -0.8 -----L Neck: -0.7 -----R Total: 0.2 -----L Total: -0.3 Z Score values are as follows: -----R Neck: -0.1 -----L Neck: 0.0 -----R Total: 0.6 -----L Total: 0.0 Bone mineral density baseline FRAX%s: The graph provided illustrates a 12.4% chance for a major osteoporotic fx and a 0.6% chance f or the hips probability for fx in 10 years time. IMPRESSION: Osteopenia (T Score between -2.5 and -1). There is slightly increased risk of fracture and the patient may be considered for treatment. Re-Screen 2-5 years. NOTE: T-SCORE=SD OF THE YOUNG ADULT MEAN.
--- NOTE | 2024-01-14 15:09 | MM ---
Reason for Exam: Screening (asymptomatic). Last mammogram was performed 1 year(s) and 10 month(s) ago. Patient History: Menarche at age 8. First Full-Term at age 16. Postmenopausal. Currently using Estrogen, beginning at age 47 for 6 years. Maternal cousin had breast cancer. Risk Values: Mayda 5 year model risk: 0.9%. NCI Lifetime model risk: 6.6%. Prior Study Comparison: 03/08/2019 Screening Mammogram, Unknown. 02/08/2021 Bilateral Screening Mammogram, [facility]. 03/10/2022 Bilateral MG 3D screening mammo w/cad, [facility]. Tissue Density: The breasts are heterogeneously dense, which may obscure small masses. Findings: Analyzed By CAD. There is no suspicious group of microcalcifications or new suspicious mass in either breast. Overall Assessment: Benign, BI-RAD 2 Management: Screening Mammogram of both breasts in 1 year. . Patient should continue monthly self-breast exams. A clinical breast exam by your physician is recommended on an annual basis. This exam should not preclude additional follow-up of suspicious palpable abnormalities. Note on Mayda scores and lifetime risk: 1. A Mayda score greater than 3% is considered moderate risk. If this is the case, consider specialist referral to assess eligibility for a risk reducing agent. 2. If overall lifetime risk for the development of breast cancer is 20% or higher, the patient may qualify for future screening with alternating mammogram and breast MRI. Electronically signed and approved by: Nik Horta M.D. Radiologis
== END | disposition home or self-care (01) ==
LOC: RADMAMWWP 07:13
PROVIDERS: ATTEND Family Medicine
DX: Z12.31 Encounter for screening mammogram for malignant neoplasm of breast (principal); M85.89 Other specified disorders of bone density and structure, multiple sites; Z78.0 Asymptomatic menopausal state; Z80.3 Family history of malignant neoplasm of breast
CPT/HCPCS: 77063; 77067; 77080

== ENCOUNTER 2024-08-24 10:56 | Day surgery (SDC) | payer OTHER ==
[2024-08-24 12:15] VITALS: TEMP 98.4
[2024-08-24] MEDS: IV FLUID CONTINUATION 1,000 ML IV ONE (12:26)
[2024-08-24] MEDS: LACTATED RINGERS 1,000 ML IV SCH (12:29)
[2024-08-24] MEDS ORDERED: LIDOCAINE 1% INJ 10MG/ML (20 ML MDV) ONE (12:47)
[2024-08-24] MEDS ORDERED: PROPOFOL 10 MG/ML 20 ML VIAL IV ONE (12:47)
--- NOTE | 2024-08-24 12:56 | P.PCN ---
Date of Procedure: 08/24/24 Procedure(s) Performed: BRIEF HISTORY: Patient is a 54-year-old pleasant white female scheduled for an elective colonoscopy as a part of screening for colon cancer. PROCEDURE PERFORMED: Colonoscopy. PREOPERATIVE DIAGNOSIS: Screening for colon cancer. IV sedation per Anesthesia. PROCEDURE: After informed consent was obtained, the patient, was brought into the endoscopy unit. IV sedation was administered by Anesthesia under continuous monitoring. Digital rectal examination was normal. Initially the Olympus CF-160 flexible video colonoscope was then inserted in the rectum, gradually advanced into the cecum without any difficulty. Careful examination was performed as the scope was gradually being withdrawn. Ileocecal valve and the appendiceal orifice were visualized and appeared normal. Prep was excellent. Mucosa of the cecum, ascending colon, transverse colon, descending colon, sigmoid colon, and rectum appeared normal. Scattered sigmoid diverticulosis. Retroflexion was performed in the rectum and no lesions were seen. The patient tolerated the procedure well. IMPRESSION: Normal-appearing colon from rectum to cecum with no evidence of colorectal neoplasia. Scattered sigmoid diverticulosis. RECOMMENDATIONS: Findings of this examination were discussed with the patient as well as her family.. She was advised to have repeat screening colonoscopy in 10 years.
[2024-08-24 13:18] VITALS: BP 128/83; PULSE 81; RESP 18
== END 2024-08-24 13:31 | disposition home or self-care (01) ==
LOC: ORWHC2ENDO 10:56
PROVIDERS: ATTEND Internal Medicine Gastroenterology
DX: Z12.11 Encounter for screening for malignant neoplasm of colon (principal); K57.30 Diverticulosis of large intestine without perforation or abscess without bleeding; I10 Essential (primary) hypertension; J45.909 Unspecified asthma, uncomplicated; E07.9 Disorder of thyroid, unspecified; Z79.890 Hormone replacement therapy; Z79.82 Long term (current) use of aspirin; Z79.899 Other long term (current) drug therapy; Z88.2 Allergy status to sulfonamides
CPT/HCPCS: 45378; J2003; J2704